=== PATIENT | male | born 1990 | race Caucasian/White ===

== ENCOUNTER → 2021-07-29 15:43 | Outpatient (BNVA) | payer MEDICAID, SELFPAY | PROVIDERS: PCP Internal Medicine Geriatric Medicine; Referring Provider Internal Medicine Geriatric Medicine; Visit Provider Surgery | DX: L72.0 Epidermal cyst (principal) | CPT/HCPCS: 99202 ==

== ENCOUNTER 2021-08-15 14:26 | Outpatient (REF) | payer MEDICAID, SELFPAY ==
[2021-08-15 15:30] LABS: Hematocrit 48.6 % (42.0-52.0); Hemoglobin 16.1 g/dl (14.0-18.0); Mean Corpuscular HGB Conc 33.1 g/dl (31.0-36.0); Mean Corpuscular Hemoglobin 29.4 pg (27.0-33.0); Mean Corpuscular Volume 88.8 fL (80.0-98.0); Mean Platelet Volume 10.1 fL (9.4-12.4); Platelet Count 258 X10*3/uL (160-400); Red Blood Count 5.47 X10*6/uL (4.60-5.80); Red Cell Distribution Width 12.9 % (11.0-16.0); White Blood Count 7.6 X10*3/uL (4.8-10.8)
[2021-08-15 16:16] LABS: TSH reflex Free T4 0.75 uIU/mL (0.32-4.0)
== END 2021-08-15 14:27 | disposition home or self-care (01) ==
LOC: HO.LAB 14:26
PROVIDERS: PCP Internal Medicine Geriatric Medicine; Referring Provider Internal Medicine Geriatric Medicine; Visit Provider Internal Medicine Cardiovascular Disease
DX: R00.2 Palpitations (principal)
CPT/HCPCS: 36415; 84443; 85027; 93005; 99202

== ENCOUNTER 2021-08-28 08:13 | Outpatient (REF) | payer MEDICAID, SELFPAY ==
[2021-08-28 08:19] VITALS: BP 143/80; PULSE 104; RESP 16; TEMP 37; O2SAT 100
[2021-08-28 08:34] VITALS: BMI 23.9
[2021-08-28 08:56] VITALS: BP 137/66; PULSE 90; RESP 16; O2SAT 99
--- NOTE | 2021-08-28 09:04 | P.OP_ITS ---
Operative Note Operative Note Date of Service: 08/28/21 Narrative: Date of Service:?08/28/21 Narrative: Preop diagnosis:? Epidermal cyst on the back Postop diagnosis: The same Procedure:? Excision of epidermal cyst from the back under local anesthesia surgeon: Lauro Early MD The patient is a 63-year-old male with an epidermal cyst on the back measuring about 2.5 cm in diameter.? He wanted to proceed with excision.? Understood the technique of excision under local anesthesia and he was aware of the risks, benefits, and alternatives ?He was brought to the minor procedure room and placed in prone position.? The area of the cyst was prepped and draped.? Lidocaine 1% was used for local anesthesia.? I made incision on the skin overlying this cyst using blade 15. This carried down through the full-thickness of the skin venous fat.? There was note of some? fibrotic changes because of previous rinses of this cyst . I was able to eventually see the capsule.? I sharply dissected the capsule off of the rest of the subcutaneous layer using scissors as well as the blade 15.? A gain there was note of fibrotic changes surrounding this.? Eventually able to remove the entire cyst? including the capsule and this was sent as specimen. I then bluntly debrided the cavity with a gauze.? I irrigated this copiously.? I closed the incision with full-thickness nylon 3-0 interrupted sutures.? Dressings were applied.? He tolerated procedure well.? There were no complications noted. ? He was given wound care instructions.? He will be seen in the office for follow-up for removal sutures. ?
--- NOTE | 2021-08-28 09:04 | PM.OP ---
Brief Operative Note Date of Service: 08/28/21 Pre-op diagnosis: EPIDERMAL CYST BACK Post-op diagnosis: same Procedure: EXCISION OF EPIDERMAL CYST FROM THE BACK UNDER LOCAL ANESTHESIA Surgeon: Lauro Early MD Anesthesia: local Was an Janitorial Maintenance Worker used for this Procedure?: No Estimated blood loss (mL): 2 Pathology: other (EPIDERMAL CYST) Condition: stable Disposition: other (HOME)
== END 2021-08-28 08:14 | disposition home or self-care (01) ==
LOC: HO.MS 08:13
PROVIDERS: PCP Internal Medicine Geriatric Medicine; Visit Provider Surgery
PROC: (CPT 11403; principal; 2021-08-28 08:00)
DX: L72.0 Epidermal cyst (principal)
CPT/HCPCS: 11403; 88304

== ENCOUNTER 2021-09-03 07:23 | Emergency (ER) | payer MEDICAID, SELFPAY ==
[2021-09-03 07:25] VITALS: BP 150/88; PULSE 94; RESP 16; TEMP 36.4; O2SAT 99; BMI 25.4
--- NOTE | 2021-09-03 07:51 | ED.WOUNDLAC ---
HPI - Wound/Laceration General Chief Complaint: Wound/Laceration Stated Complaint: Wound check- surgery 2/2 Time Seen by Provider: 09/03/21 07:38 Source: patient Mode of arrival: ambulatory Limitations: no limitations History of Present Illness HPI narrative: Patient comes emergency room complaining of drainage from his surgical wound. On August 28 of this year, patient had a cyst removal from his back. Patient states he has been healing well. Patient has noted bloody discharge coming through the incision site. Denies pain, fever Related Data Home Medications Medication Instructions Recorded Confirmed fluticasone propionate 44 2 puff PO BID 07/29/21 08/15/21 mcg/actuation HFA aerosol inhaler (Flovent HFA) Previous Rx's Medication Instructions Recorded sulfamethoxazole 800 1 tab PO BID #14 tab 09/03/21 mg-trimethoprim 160 mg tablet (Bactrim DS) Allergies Allergy/AdvReac Type Severity Reaction Status Date / Time No Known Allergies Allergy Verified 08/15/21 14:31 Review of Systems Review of Systems: Constitutional : No Weight loss, No Fever, No Chills, No Night Sweats, No Fatigue, No Malaise ENT/Mouth : No Hearing loss, No Ear Pain, No Nasal Congestion, No Sinus Pain, No Hoarseness, No sore throat, No Rhinorrhea, No Swallowing Difficulty Eyes: No Eye Pain, No Swelling, No Redness, No Foreign Body, No Discharge, No Vision Changes Cardiovascular : No Chest Pain, No SOB, No Dyspnea on Exertion, No Orthopnea, No Edema, No Palpitations Respiratory : No Cough, No Sputum, No Wheezing, No Smoke Exposure, No Dyspnea Gastrointestinal : No Nausea, No Vomiting, No Diarrhea, No Constipation, No abdominal Pain, No Hematochezia, No Melena Genitourinary : no irregular bleeding, No Dysuria, No Urinary Frequency, No Hematuria, No Urinary Incontinence, No Urgency, No Flank Pain, No Urinary Flow Changes, No Hesitancy Musculoskeletal : No joint pain, No Myalgias, No Joint Swelling Skin : Complaining of bloody drainage from the surgical wound Neuro : No Weakness, No Numbness, No Paresthesias, No Loss of Consciousness, No Dizziness, No Headache Psych : No Anxiety/Panic, No Depression, No SI/HI/AH/VH, No Social Issues, Heme/Lymph: No Bruising, No Bleeding,No Lymphadenopathy Endocrine : No Polyuria, No Polydipsia, No Temperature Intolerance COUNTS INCLUDE 234 BEDS AT THE [facility] Past Medical History Medical History Epidermal cyst Surgical History History of removal of cyst Family History Family History (Updated 08/15/21 @ 14:39 by JULIET Ramos) Mother No problems noted. Father CAD (coronary artery disease) Diabetes Paternal Grandmother Breast cancer Social History Social History (Updated 08/15/21 @ 14:39 by JULIET Ramos) Alcohol intake: never Patient Tobacco Use Status: Never used Tobacco Advance Directives: No Advance Directives Information Provided: No Physical Exam Vital Signs: Vital Signs: Last Vital Signs Temp 97.6 F 09/03/21 07:25 Pulse 88 09/03/21 07:52 Resp 14 09/03/21 07:52 BP 137/86 09/03/21 07:52 Pulse Ox 98 09/03/21 07:52 BMI result Body Mass Index 25.4 Const: Other: Appearance: Alert. Oriented X3. No acute distress. Eyes: Pupils equal, round and reactive to light. ENT: Pharynx normal. Neck: Normal inspection. Neck supple. No lymph nodes noted. No crepitus CVS: Normal heart rate and rhythm. Pulses normal. Normal S1 and S2 Respiratory: No respiratory distress. Breath sounds normal. No Wheezing. No rales Abdomen: Soft and nontender. No rigidity. No distention. Back: Patient has stitches in place, very mild erythema at the top of the surgical wound , When pressure is applied around the wound, serosanguineous discharge drains, no pus Skin: Skin warm and dry. See above Extremities: No lower extremity edema. No lower extremity edema. No Lacerations. No Rash Neuro: Oriented X 3. No motor deficit. No sensory deficit. Moving all extermities. No slurred speech. Course Course Course Narrative: I discussed the physical exam with the patient, patient rates her sinus fluid, no pus. Patient likely developed a small seroma. has very mild erythema, at this time, I do not think that the wound is infected. However, it could be early cellulitis. Patient will be started on antibiotics and patient was instructed to follow up with Dr. Early Discharge Plan Discharge Clinical Impression: Visit for wound check Patient Disposition: Home, Self-Care Instructions: Seroma (DC) Additional Instructions: Please follow-up with your primary care physician tomorrow. If you have any worsening or new symptoms, please return to the emergency room or call 911 Prescriptions: New sulfamethoxazole-trimethoprim [Bactrim DS] 800-160 mg tablet 1 tab PO BID Qty: 14 0RF No Action Flovent HFA 44 mcg/actuation HFA aerosol inhaler 2 puff PO BID 0RF Referrals: Lauro Early MD [Physician] - 2 days Stand Alone Forms: Work/School Release
[2021-09-03 07:52] VITALS: BP 137/86; PULSE 88; RESP 14; O2SAT 98
== END 2021-09-03 08:11 | disposition home or self-care (01) ==
PROVIDERS: Emergency Provider Emergency Medicine; PCP Internal Medicine Geriatric Medicine
DX: L72.0 Epidermal cyst (principal); Z79.899 Other long term (current) drug therapy
CPT/HCPCS: 99283

== ENCOUNTER → 2021-09-11 09:34 | Outpatient (BNVA) | payer MEDICAID, SELFPAY | PROVIDERS: PCP Internal Medicine Geriatric Medicine; Referring Provider Internal Medicine Geriatric Medicine; Visit Provider Surgery | DX: Z48.817 Encounter for surgical aftercare following surgery on the skin and subcutaneous tissue (principal); Z87.2 Personal history of diseases of the skin and subcutaneous tissue | CPT/HCPCS: 99212 ==

== ENCOUNTER → 2021-10-18 13:15 | Outpatient (REF) | payer MEDICAID, SELFPAY ==
--- NOTE | 2021-10-18 13:32 | ECG_ITS ---
Hook-up date: 2021-10-18 12:44:00 Duration: 47:59:00 Test Indications: PALPITATIONS Medications: [id number] QRS complexes * Ventricular ectopics which represent % of total QRS comp. 5 Supraventricular ectopics which represent <1 % of total QRS comp. * Paced QRS complexs which represent % of total QRS comp. VENTRICULAR ECTOPY * Isolated * Bigeminal Cycles * Couplets * Runs * Beats in Runs * Beats LONGEST at * BPM at :: -- * Beats FASTEST at * BPM at :: -- SUPRAVENTRICULAR ECTOPY 3 Isolated 1 Couplets 0 Runs 0 Beats in Runs * Beats LONGEST at * BPM at :: -- * Beats FASTEST at * BPM at :: -- HEART RATES 52 MIN at 02:22:53 2021-10-20 82 AVG 130 MAX at 12:09:12 2021-10-20 LONGEST RR 1.3120 secs at 05:17:15 2021-10-19 S-T LEVELS Channel 1 - 128 mm at 12:44:00 2021-10-18 - 128 mm at 12:44:00 2021-10-18 Channel 2 - 128 mm at 12:44:00 2021-10-18 - 128 mm at 12:44:00 2021-10-18 Channel 3 - 128 mm at 03:20:31 -- - 128 mm at 03:20:31 Underlying rhythm is sinus; Average ventricualr rate 82/min; range 52-130/min; No significant ectopy, tachy or bradyarrhythmias; Patient diary not available for review. Referred By: Jose Garza Overread By: [place]
== END ==
LOC: HO.CARD 13:15
PROVIDERS: Visit Provider Internal Medicine Cardiovascular Disease
DX: R00.2 Palpitations (principal)
CPT/HCPCS: 93225; 93226

== ENCOUNTER 2021-11-01 14:05 | Outpatient (REF) | payer MEDICAID, SELFPAY ==
--- NOTE | ~2021-11-01 | US_ITS ---
EXAMINATION: US ABDOMEN COMPLETE CLINICAL INFORMATION: Abnormal LFTs. COMPARISON: None TECHNIQUE: Real-time imaging of the abdominal viscera. FINDINGS: PANCREAS: The head and body the pancreas are normal. The tail is not well visualized due to bowel gas. ABDOMINAL AORTA: The proximal, mid, and distal segments are normal in caliber. INFERIOR VENA CAVA: Visualized portions are normal. LIVER: Normal. The liver is normal in size. The liver contour is normal. Parenchymal echogenicity is normal. No focal hepatic lesion. There is no intrahepatic biliary duct dilatation seen. GALLBLADDER: Normal. The gallbladder is physiologically distended without evidence of stones, sludge, polyps, wall thickening or pericholecystic fluid. COMMON BILE DUCT: Normal in caliber measuring 0.3 cm in diameter. RIGHT KIDNEY: Normal. No hydronephrosis. No renal calculi or focal parenchymal lesions. The kidney measures 10.5 cm in maximum dimension. LEFT KIDNEY: Normal. No hydronephrosis. No renal calculi or focal parenchymal lesions. The kidney measures 9.8 cm in maximum dimension. SPLEEN: Normal. The spleen measures 10.6 cm in maximum dimension. FREE FLUID: None. US/US abdomen complete IMPRESSION: Limited visualization of the tail the pancreas. Otherwise unremarkable exam.
== END 2021-11-01 14:06 | disposition home or self-care (01) ==
LOC: HO.US 14:05
PROVIDERS: Visit Provider Internal Medicine Geriatric Medicine
DX: R74.01 Elevation of levels of liver transaminase levels (principal); R79.89 Other specified abnormal findings of blood chemistry
CPT/HCPCS: 76700

== ENCOUNTER → 2022-07-09 14:19 | Outpatient (BNVA) | payer MEDICAID, SELFPAY | PROVIDERS: PCP Internal Medicine Geriatric Medicine; Visit Provider Surgery | DX: L90.5 Scar conditions and fibrosis of skin (principal) | CPT/HCPCS: 99202 ==

== ENCOUNTER 2023-09-01 14:16 | Outpatient (REF) | payer MEDICAID, SELFPAY ==
[2023-09-01 16:23] LABS: MANUAL DIFF FLAG NO
[2023-09-01 16:28] LABS: Basophils Percent Auto 0.2 % (0-2); Eosinophils Absolute Auto 0.1 X10*3/uL (0.0-0.4); Eosinophils Percent Auto 1.4 % (0-4); Hematocrit 48.5 % (42.0-52.0); Hemoglobin 16.1 g/dl (14.0-18.0); Imm Gran Abs Auto 0.02 X10*3/uL (0.00-0.03); Imm Gran Pct Auto 0.2 % (0.0-0.4); Lymphocytes Absolute Auto 2.2 X10*3/uL (1.2-4.9); Lymphocytes Percent Auto 25.1 % (20-40); Mean Corpuscular HGB Conc 33.2 g/dl (31.0-36.0); Mean Corpuscular Hemoglobin 29.3 pg (27.0-33.0); Mean Corpuscular Volume 88.2 fL (80.0-98.0); Mean Platelet Volume 10.5 fL (9.4-12.4); Monocytes Absolute Auto 0.5 X10*3/uL (0.1-1.2); Monocytes Percent Auto 5.7 % (2-11); Neutrophils Absolute Auto 5.8 x10*3/uL (2.0-8.3); Neutrophils Percent Auto 67.4 % (45-73); Platelet Count 280 X10*3/uL (160-400); Red Cell Distribution Width 12.9 % (11.0-16.0); White Blood Count 8.6 X10*3/uL (4.8-10.8)
[2023-09-01 16:57] LABS: Alanine Aminotransferase 40 U/L (0-40); Albumin Level 4.5 g/dL (3.5-5.0); Alkaline Phosphatase 97 U/L (39-117); Anion Gap 14 (12-20); Aspartate Amino Transferase 26 U/L (5-37); Bilirubin Total 0.5 mg/dL (0.0-1.0); Blood Urea Nitrogen 15 mg/dL (9-16); Calcium 9.7 mg/dL (8.4-10.2); Carbon Dioxide 25 mmol/L (22-29); Chloride 105 mmol/L (96-108); Cholesterol 205 mg/dL (<200); Estimated Glomerular Filt Rate > 60; Glucose Random 73 mg/dL (60-115); HDL Cholesterol 39 mg/dL (>40); LDL Cholesterol Calculated 138 mg/dL (<100); Potassium 4.1 mmol/L (3.3-5.1); Sodium 140 mmol/L (135-145); Total Protein 7.8 g/dL (6.5-8.0); Triglycerides 142 mg/dL (<150)
== END 2023-09-01 14:17 | disposition home or self-care (01) ==
LOC: HO.HHCL 14:16
PROVIDERS: Visit Provider Internal Medicine Geriatric Medicine
DX: Z13.1 Encounter for screening for diabetes mellitus (principal); Z13.220 Encounter for screening for lipoid disorders; J45.40 Moderate persistent asthma, uncomplicated
CPT/HCPCS: 36415; 80053; 80061; 85025

== ENCOUNTER 2025-04-08 08:45 | Outpatient (REF) | payer MEDICAID, SELFPAY ==
[2025-04-08 10:27] LABS: Alanine Aminotransferase 77 U/L (0-40); Albumin Level 4.9 g/dL (3.5-5.0); Alkaline Phosphatase 119 U/L (39-117); Anion Gap 14 (12-20); Aspartate Amino Transferase 36 U/L (5-37); Blood Urea Nitrogen 16 mg/dL (9-16); Calcium 10.0 mg/dL (8.4-10.2); Carbon Dioxide 25 mmol/L (22-29); Chloride 105 mmol/L (96-108); Cholesterol 226 mg/dL (<200); Estimated Glomerular Filt Rate > 60; HDL Cholesterol 38 mg/dL (>40); Potassium 3.9 mmol/L (3.3-5.1); Sodium 140 mmol/L (135-145); Total Protein 7.8 g/dL (6.5-8.0); Triglycerides 90 mg/dL (<150)
[2025-04-08 10:43] LABS: HIV Num 1 0.05 S/CO (0.00-0.99)
[2025-04-08 12:41] LABS: CT PCR Urine NOT DETECTED (Not Detect.); NG PCR Urine NOT DETECTED (Not Detect.)
== END 2025-04-08 08:46 | disposition home or self-care (01) ==
LOC: HO.LAB 08:45
PROVIDERS: PCP Internal Medicine Geriatric Medicine; Visit Provider Internal Medicine Geriatric Medicine
DX: Z11.3 Encounter for screening for infections with a predominantly sexual mode of transmission (principal); Z11.8 Encounter for screening for other infectious and parasitic diseases; Z11.4 Encounter for screening for human immunodeficiency virus [HIV]; Z13.220 Encounter for screening for lipoid disorders
CPT/HCPCS: 36415; 80053; 80061; 86592; 87389; 87491; 87591